=== PATIENT | female | born 1985 | race Two or more races ===

== ENCOUNTER 2017-02-07 00:59 | Emergency (ER) | payer MEDICAID, OTHER, SELFPAY ==
[~2017-02-07] VITALS: Ht 167.6 cm; Wt 218.6 kg
[2017-02-07] MEDS ORDERED: KETOROLAC 60 MG/2 ML VIAL (J1885) IM ONE (01:30)
--- NOTE | 2017-02-07 02:27 | REP ---
Clinical: Dyspnea. Technique: PA and lateral views of the chest. Findings: Examination is limited by technique and poor inspiratory effort. Right lower lobe opacity suggests atelectasis/infiltrate and possible small layering effusion. Mediastinum and cardiac silhouette are within normal limits. No obvious pneumothorax. Skeletal structures intact. Impression: Right lower lobe opacities suggesting atelectasis/infiltrate and possible small effusion. Signed by Laureano Bacon MD 02/07/2017 02:19 A
[2017-02-07 04:13] LABS: ABG BASE EXCESS 1.4 (-2.0-2.0); ABG HCO3 24.8 MEQ/L (22.0-26.0); ABG PARTIAL PRESSURE O2 95.5 mmHg (75.0-100.0); ABG STANDARD HCO3 25.7 MEQ/L (22.0-26.0); ABG TOTAL CO2 25.9 MEQ/L (22.0-29.0); ABG pH (ARTERIAL) 7.468 UNITS (7.350-7.450)
[2017-02-07] MEDS ORDERED: dexameTHASONE 20 MG/5 ML VIAL (J1100) IV ONE (04:15)
[2017-02-07 04:19] LABS: BASO # 0.1 K/mm3 (0.0-0.2); BASO % 0.5 % (0.0-1.0); EOS # 0.2 K/mm3 (0.0-0.50); EOS % 1.5 % (0.0-3.0); LARGE UNSTAINED CELL # 0.2 K/mm3 (0.0-0.4); LARGE UNSTAINED CELL % 1.2 % (0.0-4.0); LYMPH # 2.2 K/mm3 (1.5-4.5); LYMPH % 11.7 % (24.0-44.0); MEAN CORPUSCULAR HEMOGLOBIN 27.1 pg (27.0-33.0); MEAN CORPUSCULAR HGB CONC 31.7 g/dl (32.0-36.5); MEAN CORPUSCULAR VOLUME 85.3 fl (80.0-96.0); MONO % 5.9 % (0.0-5.0); NEUTROPHILS # 13.6 K/mm3 (1.8-7.7); NEUTROPHILS % 79.3 % (36.0-66.0); PLATELET COUNT, AUTOMATED 356 k/mm3 (150-450); RED CELL DISTRIBUTION WIDTH 14.2 % (11.5-14.5); WHITE BLOOD COUNT 17.1 K/mm3 (4.0-10.0)
[2017-02-07 04:56] LABS: INR 1.15
[2017-02-07 05:17] VITALS: BP 184/83
[2017-02-07] MEDS ORDERED: PRED20TA PO (05:43)
[2017-02-07] MEDS ORDERED: ZITHTAB PO (05:43)
[2017-02-07 05:46] LABS: ANION GAP 10 MEQ/L (8-16); BLOOD UREA NITROGEN 20 MG/DL (7-18); CALCIUM LEVEL 8.5 MG/DL (8.5-10.1); CARBON DIOXIDE LEVEL 25 MEQ/L (21-32); CHLORIDE LEVEL 110 MEQ/L (98-107); CREATININE FOR GFR 1.06 MG/DL (0.55-1.02); GLOMERULAR FILTRATION RATE > 60.0 (>60); GLUCOSE, FASTING 146 MG/DL (70-105); SODIUM LEVEL 145 MEQ/L (136-145)
== END 2017-02-07 06:11 | disposition home or self-care (01) ==
LOC: M ED 00:59
DX: R91.8 Other nonspecific abnormal finding of lung field (principal); R07.81 Pleurodynia; J45.909 Unspecified asthma, uncomplicated
CPT/HCPCS: 36415; 71020; 80048; 82803; 83605; 85025; 85610; 85730; 87040; 96372; 96374; 99283; J1100; J1885

== ENCOUNTER 2017-02-08 22:47 | Inpatient (IN) | payer OTHER ==
[~2017-02-08] VITALS: Ht 170.2 cm; Wt 215.1 kg
[~2017-02-08 22:47] MED LIST: PRED20TA PO; ZITHTAB PO
[2017-02-08 23:55] LABS: ABG BASE EXCESS 0.8 (-2.0-2.0); ABG HCO3 23.6 MEQ/L (22.0-26.0); ABG PARTIAL PRESSURE CO2 31.7 mmHg (35.0-45.0); ABG PARTIAL PRESSURE O2 86.1 mmHg (75.0-100.0); ABG STANDARD HCO3 25.2 MEQ/L (22.0-26.0); ABG TOTAL CO2 24.5 MEQ/L (22.0-29.0); ABG pH (ARTERIAL) 7.489 UNITS (7.350-7.450)
[2017-02-09] MEDS ORDERED: CEFUROXIME SODIUM 1.5 GM in D5W MINI-BAG PLUS 50 ML IV ONE (00:15)
[2017-02-09] MEDS ORDERED: PRED20TA PO (00:31)
[2017-02-09] MEDS ORDERED: AZIT250T8 PO (00:31)
[2017-02-09 00:34] LABS: ANION GAP 8 MEQ/L (8-16); BLOOD UREA NITROGEN 18 MG/DL (7-18); CARBON DIOXIDE LEVEL 28 MEQ/L (21-32); CHLORIDE LEVEL 108 MEQ/L (98-107); CREATININE FOR GFR 0.94 MG/DL (0.55-1.02); GLOMERULAR FILTRATION RATE > 60.0 (>60); GLUCOSE, FASTING 127 MG/DL (70-105); POTASSIUM SERUM 3.7 MEQ/L (3.5-5.1); SODIUM LEVEL 144 MEQ/L (136-145)
[2017-02-09 00:37] LABS: BASO # 0.1 K/mm3 (0.0-0.2); BASO % 0.3 % (0.0-1.0); EOS # 0.1 K/mm3 (0.0-0.50); EOS % 0.5 % (0.0-3.0); LARGE UNSTAINED CELL # 0.3 K/mm3 (0.0-0.4); LARGE UNSTAINED CELL % 1.4 % (0.0-4.0); LYMPH # 3.8 K/mm3 (1.5-4.5); LYMPH % 16.4 % (24.0-44.0); MEAN CORPUSCULAR HEMOGLOBIN 27.3 pg (27.0-33.0); MEAN CORPUSCULAR HGB CONC 32.3 g/dl (32.0-36.5); MEAN CORPUSCULAR VOLUME 84.5 fl (80.0-96.0); MONO # 1.5 K/mm3 (0.0-0.8); MONO % 7.1 % (0.0-5.0); NEUTROPHILS # 15.7 K/mm3 (1.8-7.7); NEUTROPHILS % 74.2 % (36.0-66.0); PLATELET COUNT, AUTOMATED 446 k/mm3 (150-450); RED CELL DISTRIBUTION WIDTH 14.3 % (11.5-14.5); WHITE BLOOD COUNT 21.2 K/mm3 (4.0-10.0)
[2017-02-09 00:38] LABS: INR 1.07
[2017-02-09] MEDS ORDERED: MORPHINE 4 MG/ML 1ML SYRINGE IV ONE (00:45)
--- NOTE | 2017-02-09 01:04 | REP ---
Clinical: Dyspnea. Technique: PA and lateral. Comparison: 02/07/2017. Findings: Continued evidence for right lower lobe infiltrate. Evaluation is somewhat limited by underpenetration and technique. Small pleural reaction cannot be excluded. No definite effusion. No pneumothorax. Mediastinum and cardiac silhouette are normal. Skeletal structures are intact. Impression: Continued small to moderate right lower lobe infiltrate suggested. Signed by Laureano Bacon MD 02/09/2017 12:56 A
[2017-02-09] MEDS ORDERED: IPRATROPIUM 0.5MG/ALBUTEROL 2.5MG INH SOL UD 3ML (DUONEB)(J7620) NEB PRN (03:00)
[2017-02-09] MEDS ORDERED: BISACODYL 5 MG TAB PO PRN (03:00)
[2017-02-09] MEDS ORDERED: KETOROLAC 30 MG/ML VIAL (J1885) IV PRN (03:15)
--- NOTE | 2017-02-09 03:18 | HPEPDOC ---
General Date of Admission Feb 08, 2017 at 22:48 Attending Physician: LUIZ MIRANDA DO Chief Complaint The patient is a 31-year-old female admitted with a reason for visit of Pleurodynia/Right Lower Lobe Pna. Source: Patient History of Present Illness PRIMARY CARE PROVIDER: None CHIEF COMPLAINT: worsening chest pain HISTORY OF PRESENT ILLNESS: Ms. Olivera is a 31 yo F with a PMH of asthma who presented to the [facility] ED for progressively worsening R-sided chest pain under her R breast. States she has been sick since last week Monday with a cough and a decreased appetite--was only eating cough drops and drinking orange juice. Thought she had a cold like she had 1 month ago. However, on Monday, she developed some R sided chest pain early in the morning. Thought she cracked a rib or bruised her ribs from coughing too hard. Went to [facility] ED Monday evening. States she was diagnosed with a lung infection and sent home with scripts for prednisone and Z-pack. States she took these medications the next morning at ~ 9 AM. They helped relieve her symptoms for 45 minutes to 1 hour while laying in bed. She then began to have progressively worsening R sided chest pain again. Boyfriend then drove her back to the ED and she is now here. She admits to fever and chills off and on in the past week. States she went to bed freezing at times and other times she was drenched in sweat. Denies fever now. Admits to pain behind eyes when she coughs too hard. Denies blurred vision. Admits to R sided chest pain that is pressure-like in quality, which expands and feels like pushing against her ribcage. States this pain had gotten better when she received a shot of something in the ED on Monday, but cannot recall what the shot was. Denies radiation of chest pain anywhere else. Was a 9/ 10 when it began initially. Now, it is rated a 7/10 after receiving IV morphine. Gets better when she lays flat on her stomach with her arms placed underneath her pillow when she sleeps. Pain is exacerbated by laying on her back flat, sitting up forward, standing, and walking, as well as other position changes. Is also exacerbated by taking in deep breaths and patient is having SOB since Monday. Denies any recent travel, recent surgery/hospitalization, or malignancy. Denies oral contraceptive use. States she is physically active, but stays at home with her parents. States she takes walks outside with her brother ~3 times per week, does yardwork, and cleans around the house. Denies having periods of prolonged immobility. Denies any recent/long plane rides or car rides. Denies fevers, chills, nausea, vomiting, diarrhea, abdominal pain, constipation, leg/calf pain, or edema. Aside from the above, patient's boyfriend states that patient had [employer] brown batter ice cream last week prior to patient's illness. States they just recently found that there is bad herbicide/contamination in recent testing that was performed. Patient states she had ice cream last Monday before she became sick. PAST MEDICAL HISTORY: Asthma PAST SURGICAL HISTORY: Had stitches to her L Ring Finger Denies other surgeries/procedures. MEDICATIONS: Albuterol inhaler: reports she has not used it for 1 year Midol: during menstruation Ibuprofen and/or Tylenol: headache ALLERGIES: Dye in Red Mulch: cannot touch mulch as it causes hives Eggs: vomiting Pasta sauce: vomiting Pollen in the Air: itchy/watery eyes SOCIAL HISTORY: Denies tobacco use ever Drinks EtOH rarely. Last time she drank was last year. Denies illicit drug use No recent travel No recent sick contacts Has 1 puppy FAMILY HISTORY: Father: Prostate Cancer, DM (likely type 2 as he became diabetic as an adult- onset she states) Mother: Cholecystectomy 22 yo Brother: no medical hx CODE STATUS: FULL CODE REVIEW OF SYSTEMS: All ROS negative except for those as stated above in HPI. LABORATORY DATA: CBC: WBC 21.2 and Hgb: 11.7, Neutrophil%: 74.2, Lymphocyte%: 16.4. BMP: Fasting glucose: 127 PT: 14 APTT: 30.5 INR: 1.07 ABG: pH 7.489/pCO2: 31.7/pO2 86.1; serum bicarbonate: 28 D-dimer: 2555.7 Lactic acid: 1.2 Ca: 9 MICROBIOLOGY: Blood cx pending. Sputum cx pending. ELECTROCARDIOGRAM: Sinus Tachycardia at ventricular rate 104 bpm, nonspecific T-wave abnormality, SD interval: 132, QRS duration: 82, QTc interval: 382. RADIOLOGY: CXR: continued small to moderate RLL infiltrate extending up to minor fissure more than previous CXR done on Monday. Duplex U/S of Bilateral LE: (-) for DVT ASSESSMENT: 31 yo F with PMH of asthma is presenting for progressively worsening R-sided chest pain. CXR showed continued small to moderate RLL infiltrate extending up to the minor fissure. U/S of bilateral LE's was negative for DVT. EKG showed sinus tachycardia with no ST-T wave abnormalities. In addition, D-dimer found to be elevated at 2555.7. RLL Community Acquired Pneumonia Leukocytosis--possibly worsened by pneumonia or steroid demargination Sinus Tachycardia Pleurodynia/Pleuritic Chest Pain Elevated D-dimer: Rule out PE Hx of Asthma PLAN: Admit to PCU for monitoring on telemetry to Dr. Moran's service. Will start rocephin and azithromycin, duonebs q8h and q2h PRN, IV solumedrol 40 mg q8h, accapella, oxygen therapy to keep sats >94%. Pain control with tylenol, toradol IV 15 mg q6h PRN breakthrough pain, and morphine 2 mg q2h PRN pain. Tylenol for pain/fever. Have ordered V/Q scan for the morning. Continue home medications PRN. DVT ppx: lovenox 40 sc daily FULL CODE STATUS Immunizations as per protocol My preceptor for this patient encounter was Dr. Luiz Miranda, and was physically present in the building during the encounter and was fully available. As needed, all aspects of the patient interview, examination, medical decision making process, and medical care plan development were reviewed and approved by the preceptor. Preceptor is aware and concurs with the plan as stated in the body of this note and will attest to such by his/her cosignature. Home Medications Scheduled Azithromycin (Azithromycin) 250 Mg Tab, 250 MG PO ASDIRECTED, (Reported) TAKE 2 TABS ON DAY 1, DAYS 2-5 TAKE ONE TAB; PATIENT STATES SHE TOOK DAY 2 ON 02/08. Prednisone (Prednisone) 20 Mg Tab, 60 MG PO DAILY, (Reported) FIVE DAY SUPPLY; TOOK 2ND DOSE ON 02/08. Allergies Coded Allergies: No Known Allergies (Unverified , 02/07/17) Physical Examination General Exam: Positive: Alert, Cooperative, Other (Appears to be in respiratory distress and is tachypneic; Patient is morbidly obese) Eye Exam: Positive: Conjunctiva & lids normal ENT Exam: Positive: Atraumatic, Other ENT (grossly normal hearing bilaterally) Neck Exam: Positive: Supple, Negative: JVD, thyromegaly, Lymphadenopathy Chest Exam: Positive: Other (Diminished breath sounds in R lung bases with very mild crackles. All other lung andre with distant but clear breath sounds. Speaks in full sentences but is gasping for breath in between speaking.) Heart Exam: Positive: Tachycardic, Regular Rhythm, Normal S1, Normal S2, Other (Very distant heart sounds. ), Negative: Gallops, Murmurs, Rubs Abdomen Exam: Positive: Normal bowel sounds, Soft, Other (very obese abdomen), Negative: Tenderness, Hepatospenomegaly Extremity Exam: Positive: Normal pulses, Negative: Clubbing, Cyanosis, Edema, Tenderness Skin Exam: Positive: Nl turgor and temperature, Other skin issue (Back appears to be erythematous (patient states may be from mosquito bites)) Neuro Exam: Positive: Other (No focal neurologic deficits appreciated. ) Psych Exam: Positive: Mental status NL, Mood NL, Memory Intact, Oriented x 3 Vital Signs Vital Signs Date Time Temp Pulse Resp B/P (MAP) Pulse Ox O2 Delivery O2 Flow Rate FiO2 02/09/17 02:03 98.9 107 20 153/79 (103) 97 Room Air Laboratory Data Labs 24H Laboratory Tests 2 02/08/17 23:22: White Blood Count 21.2H, Red Blood Count 4.29, Hemoglobin 11.7L, Hematocrit 36.2 , Mean Corpuscular Volume 84.5, Mean Corpuscular Hemoglobin 27.3, Mean Corpuscular Hemoglobin Concent 32.3, Red Cell Distribution Width 14.3, Platelet Count 446, Neutrophils (%) (Auto) 74.2H, Lymphocytes (%) (Auto) 16.4L, Monocytes (%) (Auto) 7.1H, Eosinophils (%) (Auto) 0.5, Basophils (%) (Auto) 0.3 , Neutrophils # (Auto) 15.7H, Lymphocytes # (Auto) 3.8, Monocytes # (Auto) 1.5H , Eosinophils # (Auto) 0.1, Basophils # (Auto) 0.1, Large Unclassified Cells % 1.4, Large Unclassified Cells # 0.3, Prothrombin Time 14.0, Prothromb Time International Ratio 1.07, Activated Partial Thromboplast Time 30.5, D-Dimer, Quantitative 2555.7H, Anion Gap 8, Glomerular Filtration Rate > 60.0, Blood Urea Nitrogen 18, Creatinine 0.94, Sodium Level 144, Potassium Level 3.7, Chloride Level 108H, Carbon Dioxide Level 28, Calcium Level 9.0 02/08/17 23:33: Blood Gas Bicarbonate Standard 25.2, Arterial Blood pH 7.489H, Arterial Blood Partial Pressure CO2 31.7L, Arterial Blood Partial Pressure O2 86.1, Arterial Blood Total CO2 24.5, Arterial Blood HCO3 23.6, Arterial Blood Base Excess 0.8, Arterial Blood Oxygen Saturation 96.9 02/09/17 00:54: Lactic Acid Level 1.2 CBC/BMP Laboratory Tests 02/08/17 23:22 Red Blood Count 4.29, Mean Corpuscular Volume 84.5, Mean Corpuscular Hemoglobin 27.3, Mean Corpuscular Hemoglobin Concent 32.3, Red Cell Distribution Width 14.3 , Neutrophils (%) (Auto) 74.2 H, Lymphocytes (%) (Auto) 16.4 L, Monocytes (%) ( Auto) 7.1 H, Eosinophils (%) (Auto) 0.5, Basophils (%) (Auto) 0.3, Neutrophils # (Auto) 15.7 H, Lymphocytes # (Auto) 3.8, Monocytes # (Auto) 1.5 H, Eosinophils # (Auto) 0.1, Basophils # (Auto) 0.1, Calcium Level 9.0 Microbiology Microbiology 02/09/17 Blood Culture, Received Pending Plan / VTE VTE Prophylaxis Ordered?: Yes (lovenox 40 units SC) DHAVAL QUINN OGME-1 Feb 09, 2017 03:18
--- NOTE | 2017-02-09 03:30 | REPUSA ---
Indication: Suspected edema and swelling. Technique:Real-time ultrasound images of the deep venous system with Doppler evaluation. Findings: Normal compression, spontaneity and augmentation. Normal color Doppler. No intraluminal thrombus is seen. IMPRESSION: No evidence of deep venous thrombosis.
[2017-02-09 04:00] VITALS: BP 162/89
[2017-02-09] MEDS ORDERED: methylPREDNISolone INJ 125 MG/2 ML VIAL (J2930) IV SCH ×2 (04:00→16:00)
[2017-02-09] MEDS: MORPHINE 2 MG/ML 1ML SYRINGE IV PRN (04:36)
[2017-02-09] MEDS: AZITHROMYCIN INJ 500 MG, VIAL MATE ADAPTER 1 EACH in D5W 250 ML IV SCH (04:41)
[2017-02-09] MEDS: cefTRIAXone SOD 2 GM in D5W MINI-BAG PLUS 50 ML IV SCH (05:49)
[2017-02-09] MEDS: IPRATROPIUM 0.5MG/ALBUTEROL 2.5MG INH SOL UD 3ML (DUONEB)(J7620) NEB SCH ×2 (07:11→14:56)
[2017-02-09 09:00] VITALS: BP 145/76
[2017-02-09] MEDS: ENOXAPARIN 40 MG/0.4 ML SYRINGE (J1650) SC SCH (09:46)
[2017-02-09 12:00] VITALS: BP 142/76
[2017-02-09] MEDS ORDERED: ISOVUE-370 76% 100ML VIAL (Q9967) As Ordered ONE (13:12)
[2017-02-09] MEDS: methylPREDNISolone INJ 40 MG/1 ML VIAL (J2920) IV SCH (17:01)
--- NOTE | 2017-02-09 17:15 | REP ---
CT ANGIOGRAM CHEST: 02/09/2017. Clinical history: Dyspnea. Comparison: Chest x-ray 02/09/2017, 02/07/2017. Technique: The patient received a bolus 100 mL of Isovue [address] pulmonary angiogram protocol with thick slab MIP reformatting in both coronal and sagittal projections. Findings: Exam is limited by the patient's extreme body habitus. That said, there is dense consolidative opacity involving the right middle lobe and some of the medial segment and all of the lateral segment consolidated. It abuts the diaphragm with minimal dependent atelectatic change deep sulcus in the right lower lobe and left. There is elevation of the right diaphragm as on the radiographs. There is no pleural effusion, lateral pleural thickening, apical scarring or pneumothorax. No other infiltrates in the lungs. Ring detector artifact is seen in the central portion of the mediastinum due to body habitus considerations. No pericardial thickening or effusion. The heart is enlarged. Aorta is without aneurysm or dissection. No gross filling defect in the main, right and left pulmonary arteries in the mediastinum. [place] artifact from contrast in the SVC limits evaluation of that right main pulmonary artery. Central, lobar arteries and visible segmental arteries were grossly intact. No vessel cutoff. Exam is insensitive for subsegmental and distal segmental arteries. No pathologic sized mediastinal or hilar adenopathy. No axillary or supraclavicular mass. Bone windows show the sternum, manubrium, medial clavicles, glenohumeral joints, scapulae, ribs and spine without fracture or destructive lesion. The upper abdomen shows the liver in part and also the spleen in part without discrete lesion. No adrenal lesion. Body and tail of the pancreas grossly intact. No gross hiatal hernia. Only a portion of the gallbladder is seen with that portion without a stone. Impression: 1. There is no CT evidence of pulmonary thromboembolism or aortic aneurysm/dissection. The exam is decreased in sensitivity due to extreme body habitus considerations with ring detector artifact and spray artifact from dense contrast in the SVC adjacent to that right main pulmonary artery within the mediastinum. 2. Dense consolidation consistent with pneumonia involving the right middle lobe, all of its lateral segment and part of its medial segment. Only minimal dependent atelectasis in the posterior lower lung zones bilaterally with no definite effusion. 3. There are no other significant or acute findings. The heart is enlarged. No pericardial thickening or effusion. Signed by Basilio Young MD 02/09/2017 06:42 P
[2017-02-09 17:17] VITALS: BP 128/60
[2017-02-09 20:00] VITALS: BP 153/76
--- NOTE | 2017-02-09 21:35 | ECGEPIP ---
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
--- NOTE | 2017-02-09 21:54 | IPN ---
DATE: 02/09/2017 The patient is seen and admitted overnight for right lower lobe pneumonia, community acquired. Reported respiration much improved. Cough much improved. Coughing productive of clear sputum. Denies any fevers, chills, chest pain, pressure or discomfort. Not on oxygen supplementation at this time. VITAL SIGNS: Temperature 98.6, pulse 89, respirations 18, blood pressure 128/60, pulse oximetry 95% on room air. LABORATORY: White blood count (WBC) 21.2, hemoglobin and hematocrit 11.7/36.2, platelets 446. Chemistry: Sodium 144, potassium 3.7, chloride 108, bicarbonate 28, BUN 18, creatine 0.94. CT angiogram: No evidence of pulmonary embolism. PHYSICAL EXAMINATION: GENERAL: The patient morbidly obese. Alert and oriented times three in no acute distress. HEENT: Normocephalic, atraumatic. PULMONARY: Bilateral mild expiratory wheeze, distant breath sounds. CARDIAC: Regular rate and rhythm. Normal S1 and S2. ABDOMEN: Soft, nontender. Positive bowel sounds. EXTREMITIES: No clubbing, cyanosis or edema. ASSESSMENT AND PLAN: This is a 31-year-old female patient with underlying medical history of asthma, morbid obesity presented with left-sided chest pain and shortness of breath. PROBLEMS: 1. Left-sided chest pain, shortness of breath and cough secondary to community acquired bacterial pneumonia. CT angiogram shows no evidence of pulmonary embolism (PE). Rocephin, azithromycin. Followup C-reactive protein and sputum cultures. 2. Morbid obesity. Counseling provided. Will monitor the patient closely. Denies history of obstructive sleep apnea. Does not use CPAP at home. 3. Asthma exacerbation secondary to community acquired bacterial pneumonia. Continue antibiotics mentioned above. Solu-Medrol and nebulizer treatment. Taper as tolerated. 4. Deep vein thrombosis (DVT) prophylaxis. Lovenox subcutaneous. DISPOSITION/PLANNING: Pending clinical improvement.
[2017-02-09 23:59] VITALS: BP 168/86
[2017-02-10] MEDS: MORPHINE 2 MG/ML 1ML SYRINGE IV PRN (00:09)
[2017-02-10] MEDS: IPRATROPIUM 0.5MG/ALBUTEROL 2.5MG INH SOL UD 3ML (DUONEB)(J7620) NEB SCH ×3 (00:19→15:01)
[2017-02-10] MEDS: AZITHROMYCIN INJ 500 MG, VIAL MATE ADAPTER 1 EACH in D5W 250 ML IV SCH (03:32)
[2017-02-10] MEDS: methylPREDNISolone INJ 40 MG/1 ML VIAL (J2920) IV SCH ×2 (03:32→16:51)
[2017-02-10 04:00] VITALS: BP 141/70
[2017-02-10] MEDS: ACETAMINOPHEN TAB 650MG DOSE (2X325MG) PO PRN ×2 (05:15→17:50)
[2017-02-10] MEDS: cefTRIAXone SOD 2 GM in D5W MINI-BAG PLUS 50 ML IV SCH (05:17)
[2017-02-10 05:29] LABS: BASO % 0.2 % (0.0-1.0); EOS # 0.1 K/mm3 (0.0-0.50); EOS % 0.6 % (0.0-3.0); LARGE UNSTAINED CELL # 0.2 K/mm3 (0.0-0.4); LARGE UNSTAINED CELL % 1.5 % (0.0-4.0); LYMPH # 2.7 K/mm3 (1.5-4.5); LYMPH % 16.2 % (24.0-44.0); MEAN CORPUSCULAR HEMOGLOBIN 27.7 pg (27.0-33.0); MEAN CORPUSCULAR HGB CONC 32.4 g/dl (32.0-36.5); MEAN CORPUSCULAR VOLUME 85.3 fl (80.0-96.0); MONO # 1.1 K/mm3 (0.0-0.8); MONO % 7.5 % (0.0-5.0); NEUTROPHILS # 11.3 K/mm3 (1.8-7.7); NEUTROPHILS % 73.9 % (36.0-66.0); PLATELET COUNT, AUTOMATED 409 k/mm3 (150-450); RED CELL DISTRIBUTION WIDTH 14.1 % (11.5-14.5); WHITE BLOOD COUNT 15.3 K/mm3 (4.0-10.0)
[2017-02-10 05:51] LABS: ANION GAP 8 MEQ/L (8-16); BLOOD UREA NITROGEN 17 MG/DL (7-18); CALCIUM LEVEL 8.7 MG/DL (8.5-10.1); CARBON DIOXIDE LEVEL 28 MEQ/L (21-32); CHLORIDE LEVEL 107 MEQ/L (98-107); CREATININE FOR GFR 0.76 MG/DL (0.55-1.02); GLOMERULAR FILTRATION RATE > 60.0 (>60); GLUCOSE, FASTING 286 MG/DL (70-105); MAGNESIUM LEVEL 2.4 MG/DL (1.8-2.4); POTASSIUM SERUM 4.2 MEQ/L (3.5-5.1); SODIUM LEVEL 143 MEQ/L (136-145)
[2017-02-10 08:00] VITALS: BP 141/76
[2017-02-10] MEDS: ENOXAPARIN 40 MG/0.4 ML SYRINGE (J1650) SC SCH (09:07)
[2017-02-10] MEDS ORDERED: SLF 3 ML SYR IV PRN (11:15)
[2017-02-10 12:00] VITALS: BP 138/83
[2017-02-10] MEDS: SLF 3 ML SYR IV SCH ×2 (13:43→22:00)
[2017-02-10 16:00] VITALS: BP 146/73
--- NOTE | 2017-02-10 20:10 | IPN ---
DATE: 02/10/2017 SUBJECTIVE: Patient seen and examined. No acute events overnight. Denies any fevers, chills, chest pain, pressure or discomfort. The patient reported respiration much improved. Mild cough. OBJECTIVE: VITAL SIGNS: Temperature 97, pulse 85, respirations 18, blood pressure 146/73, pulse oximetry 98% on room air. LABORATORY DATA: WBC 15.3, hemoglobin and hematocrit 12 over 37, platelets 409. Chemistry: Sodium 142, potassium 4.2, chloride 107, bicarbonate 28, BUN 17, creatinine 0.76. IMAGING: CT angiogram: No evidence of pulmonary embolism (PE) has been detected. Dense consolidation involving right middle lobe. PHYSICAL EXAMINATION: GENERAL: Patient alert and oriented times three, in no acute distress. Morbidly obese. HEENT: Normocephalic, atraumatic. PULMONARY: No significant wheeze. Distant breath sounds. Diminished breath sounds right side of the lung. CARDIAC: Regular rate and rhythm. Normal S1, S2. ABDOMEN: Soft, nontender. Positive bowel sounds. EXTREMITIES: No clubbing, cyanosis or edema. ASSESSMENT AND PLAN: This is a 31-year-old female patient with underlying medical history of asthma, morbid obesity, who presented with left-sided chest pain and shortness of breath. 1. Left-sided chest pain and shortness of breath with cough secondary to community-acquired lobar pneumonia of right middle lobe. CT angiogram shows no evidence of PE. Rocephin and azithromycin. Followup C-reactive protein, sputum cultures. 2. Morbid obesity. Counseling provided. Will monitor the patient closely. The patient denies history of sleep apnea. Does not snore and also does not use continuous positive airway pressure (CPAP) at home. 3. Asthma exacerbation secondary to community-acquired bacterial pneumonia. Taper steroids. Currently not having any wheeze. Nebulizer treatment. 4. Deep venous thrombosis (DVT) prophylaxis. Lovenox subcutaneous. DISPOSITION PLANNING: Pending clinical improvement. Likely discharge in the next 24 hours.
[2017-02-10 20:15] VITALS: BP 128/95
[2017-02-11] MEDS: IPRATROPIUM 0.5MG/ALBUTEROL 2.5MG INH SOL UD 3ML (DUONEB)(J7620) NEB SCH ×2 (00:13→07:47)
[2017-02-11 02:00] VITALS: BP 157/86
[2017-02-11] MEDS: AZITHROMYCIN INJ 500 MG, VIAL MATE ADAPTER 1 EACH in D5W 250 ML IV SCH (03:56)
[2017-02-11] MEDS: methylPREDNISolone INJ 40 MG/1 ML VIAL (J2920) IV SCH (03:56)
[2017-02-11] MEDS: SLF 3 ML SYR IV SCH (05:32)
[2017-02-11] MEDS: cefTRIAXone SOD 2 GM in D5W MINI-BAG PLUS 50 ML IV SCH (05:32)
[2017-02-11 06:00] VITALS: BP 153/76
[2017-02-11 06:30] LABS: ANION GAP 8 MEQ/L (8-16); BLOOD UREA NITROGEN 19 MG/DL (7-18); CALCIUM LEVEL 8.1 MG/DL (8.5-10.1); CARBON DIOXIDE LEVEL 27 MEQ/L (21-32); CHLORIDE LEVEL 106 MEQ/L (98-107); CREATININE FOR GFR 0.73 MG/DL (0.55-1.02); GLOMERULAR FILTRATION RATE > 60.0 (>60); GLUCOSE, FASTING 212 MG/DL (70-105); MAGNESIUM LEVEL 2.3 MG/DL (1.8-2.4); POTASSIUM SERUM 4.1 MEQ/L (3.5-5.1); SODIUM LEVEL 141 MEQ/L (136-145)
[2017-02-11 06:38] LABS: BASO % 0.3 % (0.0-1.0); EOS # 0.2 K/mm3 (0.0-0.50); LARGE UNSTAINED CELL # 0.2 K/mm3 (0.0-0.4); LARGE UNSTAINED CELL % 1.4 % (0.0-4.0); LYMPH # 3.5 K/mm3 (1.5-4.5); LYMPH % 19.7 % (24.0-44.0); MEAN CORPUSCULAR HEMOGLOBIN 26.8 pg (27.0-33.0); MEAN CORPUSCULAR HGB CONC 31.8 g/dl (32.0-36.5); MEAN CORPUSCULAR VOLUME 84.3 fl (80.0-96.0); MONO % 5.9 % (0.0-5.0); NEUTROPHILS # 11.7 K/mm3 (1.8-7.7); NEUTROPHILS % 71.7 % (36.0-66.0); PLATELET COUNT, AUTOMATED 461 k/mm3 (150-450); RED CELL DISTRIBUTION WIDTH 14.2 % (11.5-14.5); WHITE BLOOD COUNT 16.4 K/mm3 (4.0-10.0)
[2017-02-11] MEDS: ENOXAPARIN 40 MG/0.4 ML SYRINGE (J1650) SC SCH (09:11)
[2017-02-11 10:00] VITALS: BP 146/79
[2017-02-11] MEDS ORDERED: PROAAER10 INH (10:35)
[2017-02-11] MEDS ORDERED: CEFD1CAP8 PO (10:35)
--- NOTE | 2017-02-13 06:51 | DSES ---
DATE OF ADMISSION: 02/08/2017 DATE OF DISCHARGE: 02/11/2017 PRIMARY CARE PROVIDER: Dr. Barillas FINAL DIAGNOSIS: 1. Community acquired right middle lobe pneumonia 2. Chest pain. 3. Morbid obesity. 4. Asthma exacerbation. HISTORY OF PRESENT ILLNESS: This is a 31-year-old female patient with underlying medical history of asthma presented to [facility] with morbidity obesity with right-sided chest pain under her right breast. The patient has been sick for the last week with cough, decrease in appetite and not eating and has been on cough drops and orange juice with her cold like symptoms for about a month, now presented with right-sided chest pain on the morning of admission, thought she had bruised rib or broken her ribs. The patient is getting prednisone and Z-Marquise, admits to fever and chills. VITAL SIGNS: Temperature 98.5, pulse 74 and respirations 18, blood pressure 146/79, pulse oximetry 93% on room air. GENERAL: The patient is morbidly obese, alert and oriented times three in no acute distress. HEENT: Normocephalic, atraumatic. PULMONARY: Distant breath sounds bilaterally clear. CARDIAC: Regular rate and rhythm. Normal S1, S2. ABDOMEN: Soft, nontender, nondistended. Positive bowel sounds. EXTREMITIES: No edema in bilateral lower extremities. LABORATORY: White blood count (WBC) 16.4, hemoglobin and hematocrit 11.9/37.5, platelets 461. Chemistry: Sodium 141, potassium 4.1, chloride 106, bicarbonate 27, BUN 19, creatine 0.7. DISCHARGE MEDICATIONS: - ProAir as needed every 6 hours - cefdinir 200 mg by mouth twice a day for 7 days - prednisone taper. DISCHARGE INSTRUCTIONS: The patient instructed to followup with primary care provider in 7 days. Weight loss recommended. Return to the hospital if symptoms worsen.
== END 2017-02-11 11:59 | disposition home or self-care (01) | DRG 139 ==
LOC: M ED 22:47 → OBSVTOIN 22:48 → M ED INP 22:48 → M PCU 02-09 03:37 → OBSVTOIN 02-09 11:34 → INTOOBSV 02-09 11:34 → M MSPAV 02-10 20:10
PROVIDERS: ADMIT Hospitalist; ATTEND Hospitalist
DX: J15.9 Unspecified bacterial pneumonia (principal); R07.81 Pleurodynia; E66.01 Morbid (severe) obesity due to excess calories; J45.901 Unspecified asthma with (acute) exacerbation; Z68.45 Body mass index [BMI] 70 or greater, adult; Z79.899 Other long term (current) drug therapy; Z91.012 Allergy to eggs; Z91.018 Allergy to other foods

== ENCOUNTER 2022-04-22 16:28 | Emergency (ER) | payer OTHER ==
[~2022-04-22] VITALS: Ht 170.2 cm; Wt 219.2 kg
[~2022-04-22 16:28] MED LIST changes: +AZIT-10 PO; +CEFD300C41 PO; +PROAAER10 INH
[2022-04-22] MEDS ORDERED: NORCO, ANEXSIA 5/325MG TABLET (HYDROcodone/ACETAMINOPHEN) PO ONE (17:10)
[2022-04-22 17:59] LABS: HEMATOCRIT 39.5 % (36.0-47.0); HEMOGLOBIN 12.8 g/dl (12.0-15.5); MEAN CORPUSCULAR HEMOGLOBIN 26.5 pg (27.0-33.0); MEAN CORPUSCULAR HGB CONC 32.4 g/dl (32.0-36.5); MEAN CORPUSCULAR VOLUME 81.8 fl (80.0-96.0); PLATELET COUNT, AUTOMATED 287 10^3/uL (150-450); RED BLOOD COUNT 4.83 10^6/uL (4.00-5.40); WHITE BLOOD COUNT 12.9 10^3/uL (4.0-10.0)
[2022-04-22 18:25] LABS: ERYTHROCYTE SEDIMENTATION RATE 67 mm/hr (0-20)
[2022-04-22 18:39] LABS: LYMPHOCYTES 18 % (16-44); MONOCYTES 2 % (0-5); NEUTROPHILS 76 % (28-66); PLATELET ESTIMATE NORMAL (NORMAL); TOXIC VACUOLATION 1+
[2022-04-22 18:41] LABS: PLATELET CLUMPS SMALL AMT
[2022-04-22 18:46] LABS: ALBUMIN 2.5 GM/DL (3.2-5.2); BILIRUBIN,DIRECT 0.3 MG/DL (0.0-0.2); BILIRUBIN,TOTAL 0.7 MG/DL (0.2-1.0); C REACTIVE PROTEIN QUANTITATIV 47.6 MG/DL (0.00-0.30); CALCIUM LEVEL 8.7 MG/DL (8.5-10.1); CREATININE FOR GFR 1.12 MG/DL (0.55-1.30); GLOMERULAR FILTRATION RATE 58.9 (>60); POTASSIUM SERUM 3.6 MEQ/L (3.5-5.1); TOTAL PROTEIN 6.8 GM/DL (6.4-8.2)
[2022-04-22] MEDS ORDERED: cefTRIAXone SOD 2 GM in D5W MINI-BAG PLUS 50 ML IV ONE (18:50)
[2022-04-22] MEDS ORDERED: NS 2,000 ML IV ONE (18:50)
[2022-04-22] MEDS ORDERED: DOXY-443 PO (21:40)
[2022-04-22 21:51] VITALS: BP 130/72
== END 2022-04-22 21:54 | disposition home or self-care (01) ==
LOC: M ED 16:28
DX: L03.116 Cellulitis of left lower limb (principal); J45.909 Unspecified asthma, uncomplicated; Z79.899 Other long term (current) drug therapy
CPT/HCPCS: 73502; 80048; 80076; 83605; 85025; 85652; 86140; 93971; 96365; 99284; J0696

== ENCOUNTER 2022-04-24 23:37 | Inpatient (IN) | payer OTHER ==
[~2022-04-24] VITALS: Ht 170.2 cm; Wt 219.0 kg
[~2022-04-24 23:37] MED LIST changes: +DOXY-443 PO
[2022-04-25 01:59] LABS: BASO # 0.1 10^3/uL (0.0-0.2); BASO % 0.4 % (0.0-1.0); EOS # 0.1 10^3/uL (0.0-0.5); HEMATOCRIT 38.3 % (36.0-47.0); HEMOGLOBIN 12.2 g/dl (12.0-15.5); LYMPH # 3.1 10^3/uL (1.5-5.0); LYMPH % 21.3 % (24.0-44.0); MEAN CORPUSCULAR HEMOGLOBIN 26.3 pg (27.0-33.0); MEAN CORPUSCULAR HGB CONC 31.9 g/dl (32.0-36.5); MEAN CORPUSCULAR VOLUME 82.7 fl (80.0-96.0); MONO # 1.5 10^3/uL (0.0-0.8); MONO % 10.3 % (2.0-8.0); NEUTROPHILS % 62.3 % (36.0-66.0); PLATELET COUNT, AUTOMATED 377 10^3/uL (150-450); RED BLOOD COUNT 4.63 10^6/uL (4.00-5.40); WHITE BLOOD COUNT 14.4 10^3/uL (4.0-10.0)
[2022-04-25 02:51] LABS: HCG, SERUM QUALITATIVE NEGATIVE (NEGATIVE)
[2022-04-25 03:01] LABS: RSV AMPLIFICATION NEGATIVE (NEGATIVE)
[2022-04-25 03:07] LABS: ALBUMIN 2.2 GM/DL (3.2-5.2); ALT/SGPT 39 U/L (12-78); AMYLASE 18 U/L (25-115); BILIRUBIN,DIRECT 0.3 MG/DL (0.0-0.2); BILIRUBIN,TOTAL 0.6 MG/DL (0.2-1.0); BLOOD UREA NITROGEN 13 MG/DL (7-18); CALCIUM LEVEL 8.2 MG/DL (8.5-10.1); CARBON DIOXIDE LEVEL 28 MEQ/L (21-32); CHLORIDE LEVEL 99 MEQ/L (98-107); CREATININE FOR GFR 0.85 MG/DL (0.55-1.30); GLOMERULAR FILTRATION RATE > 60.0 (>60); GLUCOSE, FASTING 270 MG/DL (70-100); POTASSIUM SERUM 3.1 MEQ/L (3.5-5.1); SODIUM LEVEL 135 MEQ/L (136-145); TOTAL PROTEIN 6.8 GM/DL (6.4-8.2)
[2022-04-25] MEDS ORDERED: FLUID PLACE HOLDER IV ONE (03:45)
[2022-04-25] MEDS ORDERED: PIPERACILLIN/TAZOBACTAM SOD 4.5 GM in D5W MINI-BAG PLUS 50 ML IV ONE (03:45)
[2022-04-25] MEDS ORDERED: VANCOMYCIN HCL IV ONE (03:45)
[2022-04-25] MEDS ORDERED: POTASSIUM CHLORIDE 10MEQ SR TABLET PO ONE ×2 (04:15→15:05)
[2022-04-25] MEDS ORDERED: DOXY-443 PO (04:20)
[2022-04-25] MEDS ORDERED: HOME MED LIST COMPLETE! XX SCH (04:20)
[2022-04-25] MEDS ORDERED: VANCOMYCIN HCL 1,000 MG, VIAL MATE ADAPTER 1 EACH in NS 250 ML IV ONE ×2 (04:30→05:30)
[2022-04-25] MEDS ORDERED: ALBUTEROL 90 MCG/ACT 8GM HFA INHALER INH PRN (04:40)
[2022-04-25] MEDS ORDERED: VANCOMYCIN HCL 1,000 MG, VIAL MATE ADAPTER 1 EACH in NS 250 ML IV SCH (04:40)
[2022-04-25 05:01] LABS: INR 1.08; PROTHROMBIN TIME 14.2 SECONDS (12.5-14.5)
[2022-04-25 05:02] LABS: PARTIAL THROMBOPLASTIN TIME 30.3 SECONDS (24.8-34.2)
[2022-04-25] MEDS ORDERED: NS 1,000 ML IV ONE (05:25)
[2022-04-25 06:13] LABS: HEMATOCRIT 36.2 % (36.0-47.0); HEMOGLOBIN 11.8 g/dl (12.0-15.5); MEAN CORPUSCULAR HEMOGLOBIN 26.6 pg (27.0-33.0); MEAN CORPUSCULAR HGB CONC 32.6 g/dl (32.0-36.5); MEAN CORPUSCULAR VOLUME 81.7 fl (80.0-96.0); PLATELET COUNT, AUTOMATED 376 10^3/uL (150-450); RED BLOOD COUNT 4.43 10^6/uL (4.00-5.40); WHITE BLOOD COUNT 14.1 10^3/uL (4.0-10.0)
[2022-04-25 06:47] LABS: BLOOD UREA NITROGEN 12 MG/DL (7-18); CARBON DIOXIDE LEVEL 26 MEQ/L (21-32); CHLORIDE LEVEL 101 MEQ/L (98-107); GLOMERULAR FILTRATION RATE > 60.0 (>60); GLUCOSE, FASTING 239 MG/DL (70-100); MAGNESIUM LEVEL 2.3 MG/DL (1.8-2.4); POTASSIUM SERUM 3.2 MEQ/L (3.5-5.1); SODIUM LEVEL 135 MEQ/L (136-145)
[2022-04-25 08:21] VITALS: BP 148/76
[2022-04-25] MEDS: DOCUSATE SODIUM 100MG CAPSULE PO SCH ×2 (09:52→20:00)
[2022-04-25] MEDS: LACTOBACILLUS ACIDOPHILUS CAP (BACID) PO SCH (09:52)
[2022-04-25] MEDS: ENOXAPARIN 40MG/0.4ML SYRINGE (J1650 PER 10MG) SC SCH ×2 (09:52→20:00)
[2022-04-25] MEDS ORDERED: PIPERACILLIN/TAZOBACTAM SOD 3.375 GM in D5W MINI-BAG PLUS 50 ML IV SCH (10:00)
[2022-04-25 13:56] LABS: BLOOD UREA NITROGEN 13 MG/DL (7-18); CALCIUM LEVEL 7.9 MG/DL (8.5-10.1); CARBON DIOXIDE LEVEL 25 MEQ/L (21-32); CHLORIDE LEVEL 101 MEQ/L (98-107); CREATININE FOR GFR 0.97 MG/DL (0.55-1.30); GLOMERULAR FILTRATION RATE > 60.0 (>60); GLUCOSE, FASTING 279 MG/DL (70-100); POTASSIUM SERUM 3.3 MEQ/L (3.5-5.1); SODIUM LEVEL 135 MEQ/L (136-145)
[2022-04-25] MEDS: VANCOMYCIN HCL 750 MG, VIAL MATE ADAPTER 1 EACH in D5W 250 ML IV SCH ×4 (14:11→21:52)
[2022-04-25 14:25] VITALS: BP 140/73
[2022-04-25] MEDS: ACETAMINOPHEN TAB 650MG DOSE (2X325MG) PO PRN (20:01)
[2022-04-25 22:00] VITALS: BP 137/73
[2022-04-26] MEDS: VANCOMYCIN HCL 750 MG, VIAL MATE ADAPTER 1 EACH in D5W 250 ML IV SCH ×6 (04:38→22:24)
[2022-04-26 06:00] VITALS: BP 147/77
[2022-04-26 06:21] LABS: HEMOGLOBIN 11.1 g/dl (12.0-15.5); MEAN CORPUSCULAR HEMOGLOBIN 26.2 pg (27.0-33.0); MEAN CORPUSCULAR HGB CONC 31.7 g/dl (32.0-36.5); MEAN CORPUSCULAR VOLUME 82.7 fl (80.0-96.0); PLATELET COUNT, AUTOMATED 416 10^3/uL (150-450); RED BLOOD COUNT 4.23 10^6/uL (4.00-5.40); WHITE BLOOD COUNT 14.4 10^3/uL (4.0-10.0)
[2022-04-26 06:48] LABS: BLOOD UREA NITROGEN 11 MG/DL (7-18); CALCIUM LEVEL 7.8 MG/DL (8.5-10.1); CARBON DIOXIDE LEVEL 26 MEQ/L (21-32); CHLORIDE LEVEL 102 MEQ/L (98-107); CREATININE FOR GFR 0.96 MG/DL (0.55-1.30); GLOMERULAR FILTRATION RATE > 60.0 (>60); GLUCOSE, FASTING 275 MG/DL (70-100); MAGNESIUM LEVEL 2.3 MG/DL (1.8-2.4); POTASSIUM SERUM 3.5 MEQ/L (3.5-5.1); SODIUM LEVEL 136 MEQ/L (136-145)
[2022-04-26] MEDS ORDERED: DEXTROSE 50% 50 ML SYRINGE IV PRN (07:45)
[2022-04-26] MEDS ORDERED: GLUCAGON INJ 1MG VIAL SC PRN (07:45)
[2022-04-26] MEDS ORDERED: GLUCOSE 4GM CHEW TABLET PO PRN (07:45)
[2022-04-26 08:32] LABS: HEMOGLOBIN A1c 12.6 %
[2022-04-26] MEDS: LACTOBACILLUS ACIDOPHILUS CAP (BACID) PO SCH (08:45)
[2022-04-26] MEDS: DOCUSATE SODIUM 100MG CAPSULE PO SCH ×2 (08:45→21:00)
[2022-04-26] MEDS: IBUPROFEN 600MG TAB PO PRN (08:46)
[2022-04-26] MEDS: ENOXAPARIN 40MG/0.4ML SYRINGE (J1650 PER 10MG) SC SCH ×2 (08:46→21:16)
[2022-04-26] MEDS: INSULIN LISPRO (NovoLOG) PER UNIT SC SCH ×4 (08:47→21:00)
[2022-04-26] MEDS ORDERED: NORCO, ANEXSIA 5/325MG TABLET (HYDROcodone/ACETAMINOPHEN) PO ONE (09:30)
[2022-04-26] MEDS: ACETAMINOPHEN TAB 650MG DOSE (2X325MG) PO PRN ×2 (09:56→21:23)
[2022-04-26] MEDS: LEVEMIR (INSULIN DETEMIR) 1 UNITS/0.01ML SC SCH (12:36)
[2022-04-26 14:00] VITALS: BP 135/85
[2022-04-26] MEDS ORDERED: MOM 30ML SUSPENSION UDC PO ONE (15:30)
[2022-04-26] MEDS: cefTRIAXone SOD 1 GM in D5W MINI-BAG PLUS 50 ML IV SCH (15:37)
[2022-04-26] MEDS: MIRALAX *UNIT DOSE* 17GM PACKET PO SCH (15:41)
[2022-04-26] MEDS: SENOKOT S TAB PO SCH (21:00)
[2022-04-26 22:00] VITALS: BP 140/68
[2022-04-27] MEDS: VANCOMYCIN HCL 750 MG, VIAL MATE ADAPTER 1 EACH in D5W 250 ML IV SCH ×4 (03:30→13:47)
[2022-04-27 06:00] VITALS: BP 134/69
[2022-04-27 07:33] LABS: HEMATOCRIT 33.4 % (36.0-47.0); HEMOGLOBIN 10.6 g/dl (12.0-15.5); MEAN CORPUSCULAR HEMOGLOBIN 26.5 pg (27.0-33.0); MEAN CORPUSCULAR HGB CONC 31.7 g/dl (32.0-36.5); MEAN CORPUSCULAR VOLUME 83.5 fl (80.0-96.0); PLATELET COUNT, AUTOMATED 472 10^3/uL (150-450); WHITE BLOOD COUNT 17.4 10^3/uL (4.0-10.0)
[2022-04-27] MEDS: MIRALAX *UNIT DOSE* 17GM PACKET PO SCH (09:00)
[2022-04-27] MEDS: SENOKOT S TAB PO SCH ×2 (09:00→21:54)
[2022-04-27 09:04] LABS: BLOOD UREA NITROGEN 13 MG/DL (7-18); CALCIUM LEVEL 7.9 MG/DL (8.5-10.1); CARBON DIOXIDE LEVEL 26 MEQ/L (21-32); CHLORIDE LEVEL 106 MEQ/L (98-107); CREATININE FOR GFR 1.05 MG/DL (0.55-1.30); GLOMERULAR FILTRATION RATE > 60.0 (>60); GLUCOSE, FASTING 222 MG/DL (70-100); MAGNESIUM LEVEL 2.3 MG/DL (1.8-2.4); POTASSIUM SERUM 3.4 MEQ/L (3.5-5.1); SODIUM LEVEL 140 MEQ/L (136-145)
[2022-04-27] MEDS: ENOXAPARIN 40MG/0.4ML SYRINGE (J1650 PER 10MG) SC SCH ×2 (09:14→21:53)
[2022-04-27] MEDS: INSULIN LISPRO (NovoLOG) PER UNIT SC SCH ×4 (09:15→21:00)
[2022-04-27] MEDS: LACTOBACILLUS ACIDOPHILUS CAP (BACID) PO SCH (09:15)
[2022-04-27] MEDS: LEVEMIR (INSULIN DETEMIR) 1 UNITS/0.01ML SC SCH (09:15)
[2022-04-27] MEDS: IBUPROFEN 600MG TAB PO PRN ×2 (09:16→21:53)
[2022-04-27] MEDS: DOCUSATE SODIUM 100MG CAPSULE PO SCH ×2 (09:17→21:53)
[2022-04-27] MEDS: FLUCONAZOLE 100 MG TAB PO SCH (12:20)
[2022-04-27] MEDS: POTASSIUM CHLORIDE 10MEQ SR TABLET PO SCH (12:20)
[2022-04-27] MEDS: ACETAMINOPHEN TAB 650MG DOSE (2X325MG) PO PRN (12:21)
[2022-04-27] MEDS ORDERED: VANCOMYCIN HCL 500 MG in D5W MINI-BAG PLUS 100 ML IV SCH (13:00)
[2022-04-27 14:00] VITALS: BP 133/70
[2022-04-27] MEDS: cefTRIAXone SOD 1 GM in D5W MINI-BAG PLUS 50 ML IV SCH (15:35)
[2022-04-27 21:01] VITALS: BP 133/71
[2022-04-28] MEDS: VANCOMYCIN HCL 750 MG, VIAL MATE ADAPTER 1 EACH in D5W 250 ML IV SCH ×4 (00:16→13:42)
[2022-04-28 06:46] VITALS: BP 140/76
[2022-04-28 07:16] LABS: BLOOD UREA NITROGEN 11 MG/DL (7-18); CALCIUM LEVEL 8.2 MG/DL (8.5-10.1); CARBON DIOXIDE LEVEL 25 MEQ/L (21-32); CHLORIDE LEVEL 108 MEQ/L (98-107); CREATININE FOR GFR 1.09 MG/DL (0.55-1.30); GLOMERULAR FILTRATION RATE > 60.0 (>60); GLUCOSE, FASTING 193 MG/DL (70-100); MAGNESIUM LEVEL 2.2 MG/DL (1.8-2.4); POTASSIUM SERUM 3.9 MEQ/L (3.5-5.1); SODIUM LEVEL 140 MEQ/L (136-145)
[2022-04-28 07:31] LABS: HEMATOCRIT 35.1 % (36.0-47.0); HEMOGLOBIN 11.4 g/dl (12.0-15.5); MEAN CORPUSCULAR HEMOGLOBIN 27.3 pg (27.0-33.0); MEAN CORPUSCULAR HGB CONC 32.5 g/dl (32.0-36.5); PLATELET COUNT, AUTOMATED 510 10^3/uL (150-450); RED BLOOD COUNT 4.18 10^6/uL (4.00-5.40); WHITE BLOOD COUNT 17.8 10^3/uL (4.0-10.0)
[2022-04-28] MEDS: INSULIN LISPRO (NovoLOG) PER UNIT SC SCH ×4 (08:34→20:54)
[2022-04-28] MEDS: POTASSIUM CHLORIDE 10MEQ SR TABLET PO SCH (08:35)
[2022-04-28] MEDS: SENOKOT S TAB PO SCH ×2 (08:35→21:00)
[2022-04-28] MEDS: FLUCONAZOLE 100 MG TAB PO SCH (08:35)
[2022-04-28] MEDS: DOCUSATE SODIUM 100MG CAPSULE PO SCH ×2 (08:35→21:00)
[2022-04-28] MEDS: LACTOBACILLUS ACIDOPHILUS CAP (BACID) PO SCH (08:35)
[2022-04-28] MEDS: MIRALAX *UNIT DOSE* 17GM PACKET PO SCH (08:36)
[2022-04-28] MEDS: LEVEMIR (INSULIN DETEMIR) 1 UNITS/0.01ML SC SCH (08:36)
[2022-04-28] MEDS: ENOXAPARIN 40MG/0.4ML SYRINGE (J1650 PER 10MG) SC SCH ×3 (09:00→21:15)
[2022-04-28] MEDS: ACETAMINOPHEN TAB 650MG DOSE (2X325MG) PO PRN ×2 (12:40→21:14)
[2022-04-28 14:00] VITALS: BP 129/66
[2022-04-28] MEDS: cefTRIAXone SOD 1 GM in D5W MINI-BAG PLUS 50 ML IV SCH (15:47)
[2022-04-28 20:30] VITALS: BP 133/68
[2022-04-29] MEDS: VANCOMYCIN HCL 750 MG, VIAL MATE ADAPTER 1 EACH in D5W 250 ML IV SCH ×5 (00:22→23:48)
[2022-04-29] MEDS: IBUPROFEN 600MG TAB PO PRN ×2 (04:14→14:22)
[2022-04-29 06:04] VITALS: BP 149/80
[2022-04-29 07:01] LABS: HEMATOCRIT 33.2 % (36.0-47.0); HEMOGLOBIN 10.4 g/dl (12.0-15.5); MEAN CORPUSCULAR HEMOGLOBIN 26.4 pg (27.0-33.0); MEAN CORPUSCULAR HGB CONC 31.3 g/dl (32.0-36.5); MEAN CORPUSCULAR VOLUME 84.3 fl (80.0-96.0); PLATELET COUNT, AUTOMATED 498 10^3/uL (150-450); RED BLOOD COUNT 3.94 10^6/uL (4.00-5.40); WHITE BLOOD COUNT 16.5 10^3/uL (4.0-10.0)
[2022-04-29 07:49] LABS: CALCIUM LEVEL 8.1 MG/DL (8.5-10.1); CREATININE FOR GFR 1.13 MG/DL (0.55-1.30); GLOMERULAR FILTRATION RATE 58.3 (>60); MAGNESIUM LEVEL 2.1 MG/DL (1.8-2.4); POTASSIUM SERUM 3.2 MEQ/L (3.5-5.1)
[2022-04-29] MEDS: INSULIN LISPRO (NovoLOG) PER UNIT SC SCH ×4 (08:30→20:47)
[2022-04-29] MEDS: POTASSIUM CHLORIDE 10MEQ SR TABLET PO SCH (08:31)
[2022-04-29] MEDS: LACTOBACILLUS ACIDOPHILUS CAP (BACID) PO SCH (08:31)
[2022-04-29] MEDS: ENOXAPARIN 40MG/0.4ML SYRINGE (J1650 PER 10MG) SC SCH ×2 (08:31→20:50)
[2022-04-29] MEDS: LEVEMIR (INSULIN DETEMIR) 1 UNITS/0.01ML SC SCH (08:31)
[2022-04-29] MEDS: FLUCONAZOLE 100 MG TAB PO SCH (08:31)
[2022-04-29] MEDS: DOCUSATE SODIUM 100MG CAPSULE PO SCH ×2 (09:00→20:50)
[2022-04-29] MEDS: SENOKOT S TAB PO SCH ×2 (09:00→20:50)
[2022-04-29] MEDS: MIRALAX *UNIT DOSE* 17GM PACKET PO SCH (09:00)
[2022-04-29] MEDS ORDERED: PEN1MIS23 SC (11:19)
[2022-04-29] MEDS ORDERED: GLUC1TES2 XX (11:19)
[2022-04-29] MEDS ORDERED: ALCOPAD25 TOP (11:19)
[2022-04-29] MEDS ORDERED: LANC30MI XX (11:19)
[2022-04-29] MEDS ORDERED: LEVE1INJ5 SC (11:19)
[2022-04-29] MEDS ORDERED: BLOOKIT21 XX (11:19)
[2022-04-29] MEDS ORDERED: BASA100I SC (11:55)
[2022-04-29 14:45] VITALS: BP 145/79
[2022-04-29] MEDS: cefTRIAXone SOD 1 GM in D5W MINI-BAG PLUS 50 ML IV SCH (16:54)
[2022-04-29 20:30] VITALS: BP 141/80
[2022-04-29] MEDS: ACETAMINOPHEN TAB 650MG DOSE (2X325MG) PO PRN (20:51)
[2022-04-29] MEDS: traMADol 50 MG TAB PO PRN (23:49)
[2022-04-30] MEDS: VANCOMYCIN HCL 750 MG, VIAL MATE ADAPTER 1 EACH in D5W 250 ML IV SCH (01:00)
[2022-04-30 06:13] VITALS: BP 132/84
[2022-04-30 07:19] LABS: HEMATOCRIT 35.2 % (36.0-47.0); HEMOGLOBIN 10.9 g/dl (12.0-15.5); MEAN CORPUSCULAR HEMOGLOBIN 26.1 pg (27.0-33.0); MEAN CORPUSCULAR VOLUME 84.4 fl (80.0-96.0); PLATELET COUNT, AUTOMATED 506 10^3/uL (150-450); RED BLOOD COUNT 4.17 10^6/uL (4.00-5.40); WHITE BLOOD COUNT 16.9 10^3/uL (4.0-10.0)
[2022-04-30 07:47] LABS: CALCIUM LEVEL 8.4 MG/DL (8.5-10.1); CREATININE FOR GFR 1.18 MG/DL (0.55-1.30); GLOMERULAR FILTRATION RATE 55.5 (>60); MAGNESIUM LEVEL 2.1 MG/DL (1.8-2.4); POTASSIUM SERUM 3.9 MEQ/L (3.5-5.1)
[2022-04-30] MEDS ORDERED: LINE1TAB6 PO (08:18)
[2022-04-30] MEDS: INSULIN LISPRO (NovoLOG) PER UNIT SC SCH ×4 (08:44→20:30)
[2022-04-30] MEDS: FLUCONAZOLE 100 MG TAB PO SCH (08:44)
[2022-04-30] MEDS: LEVEMIR (INSULIN DETEMIR) 1 UNITS/0.01ML SC SCH (08:44)
[2022-04-30] MEDS: LACTOBACILLUS ACIDOPHILUS CAP (BACID) PO SCH (08:44)
[2022-04-30] MEDS: LINEZOLID 600MG TABLET (ZYVOX) PO SCH ×2 (08:44→20:30)
[2022-04-30] MEDS: ENOXAPARIN 40MG/0.4ML SYRINGE (J1650 PER 10MG) SC SCH ×2 (08:44→20:30)
[2022-04-30] MEDS: POTASSIUM CHLORIDE 10MEQ SR TABLET PO SCH (08:45)
[2022-04-30] MEDS: MIRALAX *UNIT DOSE* 17GM PACKET PO SCH (08:45)
[2022-04-30] MEDS: SENOKOT S TAB PO SCH ×2 (08:45→20:30)
[2022-04-30] MEDS: DOCUSATE SODIUM 100MG CAPSULE PO SCH ×2 (08:45→20:30)
[2022-04-30] MEDS: traMADol 50 MG TAB PO PRN ×2 (13:28→20:55)
[2022-04-30 14:00] VITALS: BP 127/66
[2022-04-30 20:23] VITALS: BP_SYST 127; BP_SYST 27; BP_DIAS 72
[2022-04-30] MEDS: ACETAMINOPHEN TAB 650MG DOSE (2X325MG) PO PRN (20:55)
[2022-05-01 06:00] VITALS: BP 155/83
[2022-05-01] MEDS: ACETAMINOPHEN TAB 650MG DOSE (2X325MG) PO PRN (06:13)
[2022-05-01] MEDS: traMADol 50 MG TAB PO PRN ×2 (06:13→20:13)
[2022-05-01 07:05] LABS: HEMATOCRIT 31.9 % (36.0-47.0); HEMOGLOBIN 9.9 g/dl (12.0-15.5); MEAN CORPUSCULAR HEMOGLOBIN 26.1 pg (27.0-33.0); MEAN CORPUSCULAR VOLUME 84.2 fl (80.0-96.0); PLATELET COUNT, AUTOMATED 467 10^3/uL (150-450); RED BLOOD COUNT 3.79 10^6/uL (4.00-5.40); WHITE BLOOD COUNT 15.7 10^3/uL (4.0-10.0)
[2022-05-01 07:42] LABS: BLOOD UREA NITROGEN 11 MG/DL (7-18); CALCIUM LEVEL 8.2 MG/DL (8.5-10.1); CARBON DIOXIDE LEVEL 27 MEQ/L (21-32); CHLORIDE LEVEL 106 MEQ/L (98-107); CREATININE FOR GFR 1.08 MG/DL (0.55-1.30); GLOMERULAR FILTRATION RATE > 60.0 (>60); GLUCOSE, FASTING 152 MG/DL (70-100); SODIUM LEVEL 139 MEQ/L (136-145)
[2022-05-01] MEDS: INSULIN LISPRO (NovoLOG) PER UNIT SC SCH ×4 (08:56→21:00)
[2022-05-01] MEDS: ENOXAPARIN 40MG/0.4ML SYRINGE (J1650 PER 10MG) SC SCH ×2 (08:57→20:13)
[2022-05-01] MEDS: LEVEMIR (INSULIN DETEMIR) 1 UNITS/0.01ML SC SCH (08:57)
[2022-05-01] MEDS: FLUCONAZOLE 100 MG TAB PO SCH (08:57)
[2022-05-01] MEDS: LACTOBACILLUS ACIDOPHILUS CAP (BACID) PO SCH (08:57)
[2022-05-01] MEDS: LINEZOLID 600MG TABLET (ZYVOX) PO SCH ×2 (08:57→20:13)
[2022-05-01] MEDS: POTASSIUM CHLORIDE 10MEQ SR TABLET PO SCH (08:57)
[2022-05-01] MEDS: DOCUSATE SODIUM 100MG CAPSULE PO SCH ×2 (09:00→20:12)
[2022-05-01] MEDS: SENOKOT S TAB PO SCH ×2 (09:00→20:12)
[2022-05-01] MEDS: MIRALAX *UNIT DOSE* 17GM PACKET PO SCH (09:00)
[2022-05-01] MEDS: IBUPROFEN 600MG TAB PO PRN (12:43)
[2022-05-01 14:00] VITALS: BP 127/70
[2022-05-01 20:32] VITALS: BP 150/85
[2022-05-02 05:58] VITALS: BP 146/85
[2022-05-02] MEDS ORDERED: RISATAB3 PO (07:35)
[2022-05-02] MEDS ORDERED: FLUC100T3 PO (07:35)
[2022-05-02] MEDS ORDERED: ACET1TAB55 PO (07:35)
[2022-05-02] MEDS ORDERED: IBUP-1022 PO (07:35)
[2022-05-02] MEDS: ENOXAPARIN 40MG/0.4ML SYRINGE (J1650 PER 10MG) SC SCH (08:03)
[2022-05-02] MEDS: INSULIN LISPRO (NovoLOG) PER UNIT SC SCH ×2 (08:03→12:23)
[2022-05-02] MEDS: LACTOBACILLUS ACIDOPHILUS CAP (BACID) PO SCH (08:04)
[2022-05-02] MEDS: ACETAMINOPHEN TAB 650MG DOSE (2X325MG) PO PRN ×2 (08:04→12:24)
[2022-05-02] MEDS: FLUCONAZOLE 100 MG TAB PO SCH (08:04)
[2022-05-02] MEDS: DOCUSATE SODIUM 100MG CAPSULE PO SCH (08:04)
[2022-05-02] MEDS: POTASSIUM CHLORIDE 10MEQ SR TABLET PO SCH (08:05)
[2022-05-02] MEDS: LINEZOLID 600MG TABLET (ZYVOX) PO SCH (08:05)
[2022-05-02] MEDS: MIRALAX *UNIT DOSE* 17GM PACKET PO SCH (08:05)
[2022-05-02] MEDS: SENOKOT S TAB PO SCH (08:05)
[2022-05-02] MEDS: LEVEMIR (INSULIN DETEMIR) 1 UNITS/0.01ML SC SCH (08:06)
[2022-05-02] MEDS ORDERED: OXYC-517 PO (10:34)
[2022-05-02] MEDS ORDERED: METF-839 PO (10:34)
[2022-05-02 14:00] VITALS: BP 140/76
[2022-05-02] MEDS ORDERED: AMOX500C PO (16:45)
== END 2022-05-02 17:10 | disposition home or self-care (01) | DRG 380 ==
LOC: M ED 23:37 → M ED INP 04-25 04:39 → ENRESERV 04-25 13:30 → M MS5PR 04-25 14:25
PROVIDERS: ADMIT Internal Medicine; ATTEND Internal Medicine Nephrology
PROC: 0JBP0ZZ Excision of Left Lower Leg Subcutaneous Tissue and Fascia, Open Approach (ICD-10-PCS; principal; 2022-04-30)
DX: E11.622 Type 2 diabetes mellitus with other skin ulcer (principal); E87.20 Acidosis, unspecified; L97.929 Non-pressure chronic ulcer of unspecified part of left lower leg with unspecified severity; I83.029 Varicose veins of left lower extremity with ulcer of unspecified site; Z68.45 Body mass index [BMI] 70 or greater, adult; E66.01 Morbid (severe) obesity due to excess calories; E87.6 Hypokalemia; J45.909 Unspecified asthma, uncomplicated; L03.116 Cellulitis of left lower limb; N39.0 Urinary tract infection, site not specified; Z79.899 Other long term (current) drug therapy

== ENCOUNTER → 2022-08-26 | Outpatient (CLI) | payer OTHER ==
[~2022-08-26] MED LIST changes: +ACET1TAB55 PO; +ALCOPAD25 TOP; +AMOX500C PO; +BASA100I SC; +BLOOKIT21 XX; +FLUC100T3 PO; +GLUC1TES2 XX; +IBUP-1022 PO; +LANC30MI XX; +LEVE1INJ5 SC; +LINE1TAB6 PO; +METF-839 PO; +OXYC-517 PO; +PEN1MIS23 SC; +RISATAB3 PO
[2022-08-26 14:39] LABS: BASO # 0.1 10^3/uL (0.0-0.2); BASO % 0.6 % (0.0-1.0); EOS # 0.3 10^3/uL (0.0-0.5); HEMATOCRIT 37.8 % (36.0-47.0); HEMOGLOBIN 11.9 g/dl (12.0-15.5); LYMPH # 4.7 10^3/uL (1.5-5.0); LYMPH % 37.2 % (24.0-44.0); MEAN CORPUSCULAR HEMOGLOBIN 26.3 pg (27.0-33.0); MEAN CORPUSCULAR HGB CONC 31.5 g/dl (32.0-36.5); MEAN CORPUSCULAR VOLUME 83.6 fl (80.0-96.0); MONO # 0.9 10^3/uL (0.0-0.8); MONO % 7.3 % (2.0-8.0); NEUTROPHILS # 6.7 10^3/uL (1.5-8.5); NEUTROPHILS % 52.6 % (36.0-66.0); PLATELET COUNT, AUTOMATED 335 10^3/uL (150-450); RED BLOOD COUNT 4.52 10^6/uL (4.00-5.40); WHITE BLOOD COUNT 12.7 10^3/uL (4.0-10.0)
[2022-08-26 15:13] LABS: ALBUMIN 3.1 G/DL (3.2-5.2); ALKALINE PHOSPHATASE 86 U/L (46-116); ALT/SGPT 21 U/L (7.0-40); AST/SGOT 22 U/L (<34); BILIRUBIN,TOTAL 0.5 MG/DL (0.3-1.2); BLOOD UREA NITROGEN 24 MG/DL (9-23); CARBON DIOXIDE LEVEL 27 MMOL/L (20-31); CHLORIDE LEVEL 106 MMOL/L (98-107); CREATININE FOR GFR 0.94 MG/DL (0.55-1.30); GLOMERULAR FILTRATION RATE > 60.0 (>60); GLUCOSE, FASTING 116 MG/DL (60-100); POTASSIUM SERUM 4.2 MMOL/L (3.5-5.1); SODIUM LEVEL 139 MMOL/L (136-145); TOTAL PROTEIN 6.9 G/DL (5.7-8.2)
== END ==
LOC: M LAB 14:05
PROVIDERS: ATTEND Family Medicine
DX: E11.65 Type 2 diabetes mellitus with hyperglycemia (principal)

== ENCOUNTER → 2022-12-02 | Outpatient (CLI) | payer OTHER ==
[~2022-12-02] MED LIST changes: +INSU100I6 SC; -LEVE1INJ5 SC
[2022-12-02 14:31] LABS: HEMOGLOBIN A1c 6.7 % (4.0-6.0)
== END ==
LOC: M LAB 13:49
PROVIDERS: ATTEND Family Medicine
DX: L65.9 Nonscarring hair loss, unspecified (principal); E11.65 Type 2 diabetes mellitus with hyperglycemia

== ENCOUNTER → 2024-11-06 | Outpatient (CLI) | payer OTHER ==
[~2024-11-06] MED LIST changes: +CEFD1CAP9 PO; -CEFD300C41 PO; +DOXY-441 PO; -DOXY-443 PO; +PEN-61 SC; -PEN1MIS23 SC
== END ==
LOC: M WHC 14:43
PROVIDERS: ATTEND Family Medicine
DX: N60.01 Solitary cyst of right breast (principal); N64.4 Mastodynia; R92.313 Mammographic fatty tissue density, bilateral breasts

== ENCOUNTER → 2024-11-27 | Outpatient (REF) | payer OTHER, MEDICAID | LOC: M LAB REF 09:23 | PROVIDERS: ATTEND Surgery | DX: N61.1 Abscess of the breast and nipple (principal); L72.0 Epidermal cyst ==

== ENCOUNTER 2025-03-25 17:02 | Emergency (ER) | payer MEDICAID, OTHER ==
[~2025-03-25] VITALS: Ht 170.2 cm; Wt 244.0 kg
[~2025-03-25 17:02] MED LIST changes: -IBUP-1022 PO; +IBUP600T42 PO
[2025-03-25 22:17] LABS: VENOUS BASE EXCESS -3.2 (-2.0-2.0); VENOUS HCO3 22.6 MMOL/L (23.0-27.0); VENOUS O2 SATURATION 97.8 % (60.0-80.0); VENOUS PARTIAL PRESSURE CO2 43.3 mmHg (38.0-50.0); VENOUS PARTIAL PRESSURE O2 108.3 mmHg (30.0-50.0); VENOUS PH 7.335 UNITS (7.330-7.430); VENOUS STANDARD HCO3 21.8 MMOL/L; VENOUS TOTAL CO2 23.9 MMOL/L (24.0-28.0)
[2025-03-25 22:20] LABS: BASO # 0.1 10^3/uL (0.0-0.2); BASO % 0.5 % (0.0-1.0); EOS # 0.2 10^3/uL (0.0-0.5); EOS % 1.4 % (0.0-3.0); LYMPH # 4.3 10^3/uL (1.5-5.0); LYMPH % 34.3 % (24.0-44.0); MONO # 1.0 10^3/uL (0.0-0.8); MONO % 8.1 % (2.0-8.0); NEUTROPHILS # 6.9 10^3/uL (1.5-8.5); NEUTROPHILS % 55.3 % (36.0-66.0); PLATELET COUNT, AUTOMATED 387 10^3/uL (150-450)
[2025-03-25 22:28] LABS: ALT/SGPT 24.0 U/L (7.0-40); AST/SGOT 35.0 U/L (<34)
[2025-03-25 22:34] LABS: KETONE, URINE AUTO RFX NEGATIVE (NEGATIVE); LEUKOCYTE ESTERASE UR AUTO RFX NEGATIVE (NEGATIVE); MUCUS, URINE RFX SMALL (NEGATIVE); NITRITE, URINE AUTO RFX NEGATIVE (NEGATIVE); RBC, URINE AUTO RFX 0 /HPF (0-3); SQUAM EPITHELIAL CELL UR AURFX 1 /HPF (0-6); WBC, URINE AUTO RFX 0 /HPF (0-3)
[2025-03-25 22:39] LABS: ACETONE/KETONE 0.16 MMOL/L (0.02-0.27)
[2025-03-25 22:43] LABS: OSMOLALITY SERUM 314.0 MOSM/KG (275-295)
[2025-03-25 22:58] LABS: ESTIMATED AVERAGE GLUCOSE 255.0 MG/DL (60-110)
[2025-03-25] MEDS: NS (Normal Saline) 0.9% 1,000 ML IV ONE (23:04)
[2025-03-26 01:05] VITALS: BP 135/60; TEMP 97.6; O2SAT 100
== END 2025-03-26 01:06 | disposition home or self-care (01) ==
LOC: M ED 17:02
DX: E11.65 Type 2 diabetes mellitus with hyperglycemia (principal); J45.909 Unspecified asthma, uncomplicated; F41.9 Anxiety disorder, unspecified; Z79.1 Long term (current) use of non-steroidal anti-inflammatories (NSAID); Z79.2 Long term (current) use of antibiotics; Z79.4 Long term (current) use of insulin; Z79.899 Other long term (current) drug therapy

== ENCOUNTER → 2025-06-25 | Outpatient (REF) | payer OTHER ==
[2025-06-25 18:16] LABS: ALT/SGPT 16 U/L (7.0-40); AST/SGOT 15 U/L (<34); CALCIUM LEVEL 8.6 MG/DL (8.5-10.1); CARBON DIOXIDE LEVEL 27 MMOL/L (20-31); CHLORIDE LEVEL 106 MMOL/L (98-107); CREATININE FOR GFR 0.76 MG/DL (0.55-1.30); GLOMERULAR FILTRATION RATE > 90.0 (>60); POTASSIUM SERUM 4.2 MMOL/L (3.5-5.1); SODIUM LEVEL 142 MMOL/L (136-145)
[2025-06-25 18:19] LABS: BASO # 0.1 10^3/uL (0.0-0.2); BASO % 0.5 % (0.0-1.0); EOS # 0.2 10^3/uL (0.0-0.5); EOS % 2.0 % (0.0-3.0); LYMPH # 3.9 10^3/uL (1.5-5.0); LYMPH % 32.7 % (24.0-44.0); MONO # 0.9 10^3/uL (0.0-0.8); MONO % 7.9 % (2.0-8.0); NEUTROPHILS # 6.7 10^3/uL (1.5-8.5); NEUTROPHILS % 56.6 % (36.0-66.0); PLATELET COUNT, AUTOMATED 403 10^3/uL (150-450)
[2025-06-25 18:34] LABS: ESTIMATED AVERAGE GLUCOSE 183.0 MG/DL (60-110)
== END ==
LOC: M SFHCLERA 09:44
PROVIDERS: ATTEND Family Medicine
DX: E11.65 Type 2 diabetes mellitus with hyperglycemia (principal)